=== PATIENT | female | born 1950 | race Caucasian/White ===

== ENCOUNTER 2018-01-09 09:15 | Outpatient (CLI) | payer BC | END 2018-01-09 09:16 | disposition home or self-care (01) | LOC: BICULT 09:15 | PROVIDERS: ATTEND Internal Medicine | DX: R10.9 Unspecified abdominal pain (principal) | CPT/HCPCS: 76705 ==

== ENCOUNTER 2018-01-22 08:01 | Outpatient (CLI) | payer BC ==
--- NOTE | 2018-01-22 11:07 | CT ---
CT ABDOMEN AND PELVIS WITH CONTRAST: Date: 01/22/18 COMPARISON: 08/21/13. HISTORY: Right upper quadrant abdominal pain for 2 months with constipation. TECHNIQUE: Multiple contiguous axial images were obtained in a CT of the abdomen and pelvis with contrast. PO co ntrast was administered. Coronal reformats performed. FINDINGS: The liver, gallbladder, kidneys, adrenal glands, spleen, and pancreas are unremarkable. No free air, free fluid, or stranding changes are seen in the abdomen or pelvis. The patient is status post hysterectomy. The large and small bowel are unremarkable. The appendix is not seen and may have been removed. No abdominal or pelvic lymphadenopathy seen. Atherosclerotic calc ifications are seen in the aorta. Degenerative changes and postsurgical changes are seen in the spine. The abdominal wall soft tissues and visualized inferior thorax are unremarkable. IMPRESSION: No evidence of acute intra-abdominal/pelvic abnormality. POS: [facility]
[2018-01-22] MEDS ORDERED: Iopamidol 370 76% 100 ML VIAL ONE (14:45)
== END 2018-01-22 08:02 | disposition home or self-care (01) ==
LOC: NM 08:01
PROVIDERS: ATTEND Internal Medicine
DX: R10.11 Right upper quadrant pain (principal)
CPT/HCPCS: 74177; 82565

== ENCOUNTER 2018-01-23 07:54 | Outpatient (CLI) | payer BC ==
--- NOTE | 2018-01-23 13:27 | NM ---
NUCLEAR MEDICINE SCAN WITH DRUG: HISTORY: Abdominal pain, unspecified. COMPARISON: 03/10/2016 TECHNIQUE: The patient was administered 5.3 millicuries of technetium 99m mebrofenin intravenously. The patient was administered 8 oz of Ensure orally, to evaluate the gallbladder ejection fraction. FINDINGS: Appropriate uptake of the radiotracer by the hepatic parenchyma. There is prompt excretion into the intrahepatic biliary system. Localization of the radiotracer in the gallbladder as early as 9 minute s. Passage of radiotracer from the common bile duct and the small bowel loops. Ejection fraction is 88%. IMPRESSION: 1. No scintigraphic evidence of acute cholecystitis. 2. Ejection fraction is 88%. POS: [facility]
== END 2018-01-23 07:55 | disposition home or self-care (01) ==
LOC: NM 07:54
DX: R10.9 Unspecified abdominal pain (principal)
CPT/HCPCS: 78227; A9537

== ENCOUNTER 2018-08-22 14:14 | Outpatient (CLI) | payer BC ==
--- NOTE | 2018-08-22 15:25 | RAD ---
PA AND LATERAL VIEWS OF THE CHEST: HISTORY: Dyspnea on exertion. FINDINGS: Comparison is made with the exam dated 10/20/2013. The heart size is normal. The lungs are expanded without focal areas of consolidation, pneumothorace s, or pleural effusions. There are degenerative changes in the spine. IMPRESSION: No radiographic evidence of acute cardiopulmonary process. POS: [facility]
== END 2018-08-22 14:15 | disposition home or self-care (01) ==
LOC: BICRAD 14:14
PROVIDERS: ATTEND Internal Medicine
DX: R06.09 Other forms of dyspnea (principal)
CPT/HCPCS: 36415; 71046; 80053; 82306; 82607; 82977; 83036; 83690; 83970; 84439; 84443; 85025; 85379

== ENCOUNTER 2018-08-29 12:49 | Outpatient (CLI) | payer BC | END 2018-08-29 12:50 | disposition home or self-care (01) | LOC: CP 12:49 | PROVIDERS: ATTEND Internal Medicine | DX: R06.09 Other forms of dyspnea (principal) | CPT/HCPCS: 94060; 94727; 94729 ==

== ENCOUNTER 2018-10-01 11:34 | Outpatient (CLI) | payer BC ==
--- NOTE | 2018-10-01 12:15 | RAD ---
THREE VIEWS RIGHT RIBS: History: Pain. Comparison: None. FINDINGS: No fracture. No cortical irregularity. No periosteal reaction. IMPRESSION: No evidence of a right rib fracture. POS: [facility]
--- NOTE | 2018-10-01 12:17 | RAD ---
THORACIC SPINE THREE VIEWS: History: Pain. Comparison: None. FINDINGS: There is mild to moderate loss of disc space height with osteophyte formation throughout the thoracic spine. There is mild rightward curvature of the upper thoracic spine. Mild leftward curvature of the distal thoracic spine. Based on the images provided, there is no significant loss of vertebral body height. No obvious malalignment. IMPRESSION: 1. Mild S-shaped curvature of the thoracic spine. 2. Multilevel degenerative disc disease with osteophyte formation. No evidence of fracture. POS: [facility]
== END 2018-10-01 11:35 | disposition home or self-care (01) ==
LOC: BICRAD 11:34
PROVIDERS: ATTEND Internal Medicine
DX: M54.9 Dorsalgia, unspecified (principal); R07.81 Pleurodynia; M43.8X4 Other specified deforming dorsopathies, thoracic region; M51.34 Other intervertebral disc degeneration, thoracic region; M25.78 Osteophyte, vertebrae
CPT/HCPCS: 72072

== ENCOUNTER 2018-10-18 08:01 | Outpatient (CLI) | payer BC ==
--- NOTE | 2018-10-18 10:41 | MRI ---
MRI THORACIC SPINE WITHOUT CONTRAST: HISTORY: M51.34, thoracic degenerative disk disease. COMPARISON: Thoracic spine radiograph from 10/01/2018. FINDINGS: Aortic contour is nonaneurysmal. No retroperitoneal adenopathy. The paraspinal musculature is normal. No hydronephrosis. No marrow infiltrative process. There is mild exaggerated thoracic kyphosis due to mild degenerative disk space disease in the mid thoracic spine, from T7 to T10. At T7-T8, there i s a small central posterior disk osteophyte complex without significant neural foraminal or spinal ca nal narrowing. At T8-T9, there is a central and right paracentral posterior disk osteophyte complex, causing mild displacement of the ventral CSF space, although the spinal canal is not significantly n arrowed. No neural foraminal narrowing. There is no neural foraminal narrowing throughout the thora cic spine. The visualized sternum is unremarkable. The signal of the cord is normal. IMPRESSION: Low grade spondylosis. No acute abnormality. No fracture. POS: [facility]
== END 2018-10-18 08:02 | disposition home or self-care (01) ==
LOC: TBSIIMAG 08:01
PROVIDERS: ATTEND Internal Medicine
DX: M51.34 Other intervertebral disc degeneration, thoracic region (principal); M47.814 Spondylosis without myelopathy or radiculopathy, thoracic region
CPT/HCPCS: 72146

== ENCOUNTER 2019-05-30 06:42 | Outpatient (CLI) | payer BC ==
--- NOTE | 2019-05-30 08:29 | ULT ---
HEPATIC SONOGRAM WITH DUPLEX EVALUATION. HISTORY: Abnormal liver function tests. Fatty liver. FINDINGS: Gallbladder is well distended. No stones visible. The common duct is 0.6 cm. Liver is diffusely ec hogenic without focal mass or intrahepatic biliary dilatation. No free fluid. The spleen measures u p to 9.4 cm. Good color and spectral Doppler flow within the hepatic and splenic arteries. Portal venous flow is towards he liver. Hepatic venous flow is towards the IVC. IMPRESSION: 1. Hepatosteatosis. 2. No evidence of gallstones or biliary obstruction. 3. No sonographic findings of portal venous hypertension. POS: [facility]
== END 2019-05-30 06:43 | disposition home or self-care (01) ==
LOC: BICULT 06:42
PROVIDERS: ATTEND Physician Assistant Medical
DX: K76.0 Fatty (change of) liver, not elsewhere classified (principal)
CPT/HCPCS: 76705

== ENCOUNTER 2019-06-19 11:01 | Outpatient (CLI) | payer BC ==
--- NOTE | 2019-06-30 15:22 | MMO ---
Bilateral MAMMO Bilat Screen [facility]. CLINICAL HISTORY: Patient is 68 years old and is seen for screening. The patient has the following family history of breast cancer: mother, at age 47. VIEWS: The views performed were: bilateral craniocaudal with tomosynthesis and bilateral mediolateral oblique with tomosynthesis. FILMS COMPARED: The present examination has been compared to prior imaging studies performed at [facility] on 02/22/2016, 04/11/2017 and 04/15/2018. MAMMOGRAM FINDINGS: There are scattered fibroglandular densities. There are benign appearing calcifications seen in both breasts. There are no suspicious masses, suspicious calcifications, or new areas of architectural distortion. IMPRESSION: THERE IS NO MAMMOGRAPHIC EVIDENCE OF MALIGNANCY. A ROUTINE FOLLOW-UP MAMMOGRAM IN 1 YEAR IS RECOMMENDED. THE RESULTS OF THIS EXAM WERE SENT TO THE PATIENT. ACR BI-RADS Category 2 - Benign finding MAMMOGRAPHY NOTE: 1. A negative mammogram report should not delay a biopsy if a dominant of clinically suspicious mass is present. 2. Approximately 10% to 15% of breast cancers are not detected by mammography. 3. Adenosis and dense breasts may obscure an underlying neoplasm. Reported by: RUPERT CABRAL MD Electonically Signed: [id number]
== END 2019-06-19 11:02 | disposition home or self-care (01) ==
LOC: BICMAMMO 11:01
PROVIDERS: ATTEND Internal Medicine
DX: Z12.31 Encounter for screening mammogram for malignant neoplasm of breast (principal); Z80.3 Family history of malignant neoplasm of breast
CPT/HCPCS: 77063; 77067

== ENCOUNTER 2019-07-25 10:50 | Outpatient (CLI) | payer BC ==
--- NOTE | 2019-07-25 12:19 | BD ---
DEXA BONE DENSITY STUDY: Date: 07/25/19 HISTORY: 69-year-old postmenopausal female for screening. FINDINGS: Left Femoral Neck: 0.714 T-Score: -1.2 Total Femur: 0.853 T-Score: -0.7 Right Femoral Neck: 0.667 T-Score: -1.7 Total Femur: 0.870 T-Score: -0.6 IMPRESSION: Osteopenia. This patient has a 10 year WHO fracture risk for a major osteoporotic fracture of 11% and for a hip fracture of 1.8%. POS: [facility]
== END 2019-07-25 10:51 | disposition home or self-care (01) ==
LOC: BICMAMMO 10:50
PROVIDERS: ATTEND Internal Medicine Endocrinology, Diabetes & Metabolism
DX: Z13.820 Encounter for screening for osteoporosis (principal); E21.2 Other hyperparathyroidism; M85.851 Other specified disorders of bone density and structure, right thigh; M85.852 Other specified disorders of bone density and structure, left thigh
CPT/HCPCS: 77080

== ENCOUNTER 2019-11-28 14:08 | Outpatient (CLI) | payer BC ==
--- NOTE | 2019-11-28 14:25 | RAD ---
XR Chest Pa Lat STANDARD History: Cough Comparison: Radiograph 2018 Findings: There is a new opacity within the lingula. Remainder the lungs are relatively clear. No pne umothorax. No effusion. No acute osseous abnormality. Impression: New lingular opacity concerning for infection. Follow-up after treatment recommended.
== END 2019-11-28 14:09 | disposition home or self-care (01) ==
LOC: BICRAD 14:08
PROVIDERS: ATTEND Chiropractor
DX: R05 Cough (principal); R91.8 Other nonspecific abnormal finding of lung field
CPT/HCPCS: 71046

== ENCOUNTER 2020-04-27 16:13 | Outpatient (CLI) | payer BC ==
--- NOTE | 2020-04-27 16:35 | RAD ---
Exam: Lumbar spine 4 views HISTORY: Lumbar radiculopathy. COMPARISON: none FINDINGS: 5 lumbar type vertebra. Bilateral transpedicular screws at L4 and L5. L4-L5 disc prosthesis In the lateral neutral weightbearing position, there is no significant loss of disc space height. Spondylolisthesis: L4-L5: Neutral 3.2 mm of anterolisthesis; flexion 3.9 mm of anterolisthesis; extension anterolisthesi s resolves L3-L4: Neutral 1.5 mm of anterolisthesis; flexion 5.1 mm of anterolisthesis; extension anterolisthesi s resolves Visualized sacrum and bony pelvis are intact. IMPRESSION: Lumbar fusion at L4-L5. Spondylolisthesis as detailed above.
== END 2020-04-27 16:14 | disposition home or self-care (01) ==
LOC: BICRAD 16:13
PROVIDERS: ATTEND Neurological Surgery
DX: M54.16 Radiculopathy, lumbar region (principal); M43.16 Spondylolisthesis, lumbar region; Z98.1 Arthrodesis status
CPT/HCPCS: 72110

== ENCOUNTER 2020-07-01 13:04 | Outpatient (CLI) | payer BC ==
--- NOTE | 2020-07-01 16:41 | MMO ---
Bilateral MAMMO Bilat Screen [facility]. CLINICAL HISTORY: Patient is 69 years old and is seen for screening. The patient has the following family history of breast cancer: mother, at age 47. VIEWS: The views performed were: bilateral craniocaudal with tomosynthesis and bilateral mediolateral oblique with tomosynthesis. FILMS COMPARED: The present examination has been compared to prior imaging studies performed at [facility] on 06/19/2019, and at [facility] on 02/22/2016, 04/11/2017 and 04/15/2018. This study has been interpreted with the assistance of computer-aided detection. MAMMOGRAM FINDINGS: There are scattered fibroglandular densities. Benign calcifications are noted bilaterally. There are no suspicious masses, suspicious calcifications, or new areas of architectural distortion. IMPRESSION: THERE IS NO MAMMOGRAPHIC EVIDENCE OF MALIGNANCY. A ROUTINE FOLLOW-UP MAMMOGRAM IN 1 YEAR IS RECOMMENDED. THE RESULTS OF THIS EXAM WERE SENT TO THE PATIENT. ACR BI-RADS Category 2 - Benign finding MAMMOGRAPHY NOTE: 1. A negative mammogram report should not delay a biopsy if a dominant of clinically suspicious mass is present. 2. Approximately 10% to 15% of breast cancers are not detected by mammography. 3. Adenosis and dense breasts may obscure an underlying neoplasm. Reported by: MILTON STERLING MD Electonically Signed: [id number]
== END 2020-07-01 13:05 | disposition home or self-care (01) ==
LOC: BICMAMMO 13:04
PROVIDERS: ATTEND Internal Medicine
DX: Z12.31 Encounter for screening mammogram for malignant neoplasm of breast (principal); Z80.3 Family history of malignant neoplasm of breast
CPT/HCPCS: 77063; 77067

== ENCOUNTER 2020-11-11 15:55 | Outpatient (CLI) | payer BC ==
--- NOTE | 2020-11-11 16:47 | MRI ---
MR CERVICAL SPINE WITHOUT CONTRAST INDICATION: 70-year-old female with cervical spondylosis TECHNIQUE: Multiplanar multisequence MR images were obtained of the cervical spine without contrast. COMPARISON: December 30, 2016 MR cervical spine from prior radiology associates FINDINGS: Posterior fossa: Within normal limits. Bone marrow signal intensity: Normal Spinal alignment: Normal. Craniocervical junction: Normal appearing. Prevertebral and perivertebral soft tissues: Visualized soft tissues appear within normal limits. Vertebral levels: C2-C3: There is moderate to severe left and moderate right facet joint degenerative change. This is p rogressed from the prior exam. There is no appreciable central canal or neural foraminal narrowing. C3-4: There is moderate to severe left and mild right facet joint degenerative change. There is mild uncovertebral hypertrophy. This is relatively stable to the prior exam. No appreciable central canal or neural foraminal narrowing is evident. C4-5: There is a broad-based disc osteophyte complex with uncovertebral hypertrophy and facet joint degenerative change inducing mild central canal narrowing with mild ventral effacement of the spinal cord. This appears slightly more pronounced on the prior exam. There is stable moderate to sev ere right neural foraminal narrowing due to uncovertebral hypertrophy and facet degenerative change. C5-C6: There is a broad-based bulge with facet joint degenerative change but no appreciable central c anal or neural foraminal narrowing. C6-C7: There is a disc osteophyte complex with facet hypertrophy inducing mild central canal narrowin g which is stable. There is a stable moderate right neural foraminal narrowing. There is mild left neural foraminal narrowing is stable. At C7-T1, there is a mild broad-based bulge but no appreciable central canal or neural foraminal narr owing. C7-T1: No appreciable central canal or neuroforaminal narrowing. IMPRESSION: 1. Moderate multilevel cervical spondylosis. 2. Slight worsening central canal narrowing at C4-5 due to slightly more pronounced disc osteophyte c omplex. 3. Multilevel neural foraminal narrowing appears stable to the prior exam.
== END 2020-11-11 15:56 | disposition home or self-care (01) ==
LOC: TBSIIMAG 15:55
PROVIDERS: ATTEND Physician Assistant
DX: M47.812 Spondylosis without myelopathy or radiculopathy, cervical region (principal); M48.02 Spinal stenosis, cervical region; M25.78 Osteophyte, vertebrae
CPT/HCPCS: 72141

== ENCOUNTER 2021-09-12 14:37 | Outpatient (CLI) | payer BC | END 2021-09-12 14:38 | disposition home or self-care (01) | LOC: BICMAMMO 14:37 | PROVIDERS: ATTEND Internal Medicine | DX: N63.20 Unspecified lump in the left breast, unspecified quadrant (principal) | CPT/HCPCS: 77066; G0279 ==

== ENCOUNTER 2022-07-03 14:27 | Outpatient (CLI) | payer BC | END 2022-07-03 14:28 | disposition home or self-care (01) | LOC: BICMAMMO 14:27 | PROVIDERS: ATTEND Internal Medicine Endocrinology, Diabetes & Metabolism | DX: M85.851 Other specified disorders of bone density and structure, right thigh (principal); M85.852 Other specified disorders of bone density and structure, left thigh; E21.2 Other hyperparathyroidism | CPT/HCPCS: 77080 ==

== ENCOUNTER 2022-07-07 15:38 | Outpatient (CLI) | payer BC | END 2022-07-07 15:39 | disposition home or self-care (01) | LOC: BICRAD 15:38 | PROVIDERS: ATTEND Internal Medicine | DX: M25.551 Pain in right hip (principal); M25.552 Pain in left hip; M16.0 Bilateral primary osteoarthritis of hip ==

== ENCOUNTER 2022-08-23 10:26 | Outpatient (CLI) | payer BC | END 2022-08-23 10:27 | disposition home or self-care (01) | LOC: BICRAD 10:26 | PROVIDERS: ATTEND Internal Medicine | DX: M25.561 Pain in right knee (principal); S82.001A Unspecified fracture of right patella, initial encounter for closed fracture; Z96.651 Presence of right artificial knee joint ==

== ENCOUNTER 2022-11-24 09:45 | Outpatient (CLI) | payer BC | END 2022-11-24 09:46 | disposition home or self-care (01) | LOC: BICMAMMO 09:45 | PROVIDERS: ATTEND Internal Medicine | DX: Z12.31 Encounter for screening mammogram for malignant neoplasm of breast (principal); Z80.3 Family history of malignant neoplasm of breast | CPT/HCPCS: 77063; 77067 ==

== ENCOUNTER 2023-12-11 13:58 | Outpatient (CLI) | payer BC | END 2023-12-11 13:59 | disposition home or self-care (01) | LOC: BICMAMMO 13:58 | PROVIDERS: ATTEND Internal Medicine | DX: Z12.31 Encounter for screening mammogram for malignant neoplasm of breast (principal); Z13.820 Encounter for screening for osteoporosis; E21.2 Other hyperparathyroidism; M85.851 Other specified disorders of bone density and structure, right thigh; M85.852 Other specified disorders of bone density and structure, left thigh; Z80.3 Family history of malignant neoplasm of breast | CPT/HCPCS: 77063; 77067; 77080 ==

== ENCOUNTER 2023-12-17 12:39 | Outpatient (CLI) | payer BC | END 2023-12-17 12:40 | disposition home or self-care (01) | LOC: BICCT 12:39 | PROVIDERS: ATTEND Neurological Surgery | DX: M47.26 Other spondylosis with radiculopathy, lumbar region (principal); M43.16 Spondylolisthesis, lumbar region; M46.06 Spinal enthesopathy, lumbar region; M48.8X6 Other specified spondylopathies, lumbar region; Z98.1 Arthrodesis status | CPT/HCPCS: 72120; 72131 ==

== ENCOUNTER 2024-03-11 10:54 | Outpatient (CLI) | payer BC ==
[2024-03-11] MEDS ORDERED: Iopamidol 370 76% 100 ML VIAL ONE (11:20)
[2024-03-11] MEDS ORDERED: GASTROGRAFIN 30 ML BOT ONE (11:20)
== END 2024-03-11 10:55 | disposition home or self-care (01) ==
LOC: CT 10:54
PROVIDERS: ATTEND Internal Medicine
DX: R10.9 Unspecified abdominal pain (principal); K76.0 Fatty (change of) liver, not elsewhere classified; K57.30 Diverticulosis of large intestine without perforation or abscess without bleeding; R19.5 Other fecal abnormalities; Z98.890 Other specified postprocedural states
CPT/HCPCS: 74177; Q9963; Q9967

== ENCOUNTER 2024-10-31 09:36 | Outpatient (CLI) | payer BC | END 2024-10-31 09:37 | disposition home or self-care (01) | LOC: BICRAD 09:36 | PROVIDERS: ATTEND Internal Medicine | DX: R07.81 Pleurodynia (principal) ==

== ENCOUNTER 2024-11-10 13:32 | Outpatient (CLI) | payer BC ==
[~2024-11-10 13:32] MED LIST: Iopamidol 370 76% 100 ML VIAL ONE
== END 2024-11-10 13:33 | disposition home or self-care (01) ==
LOC: CT 13:32
PROVIDERS: ATTEND Internal Medicine
DX: R10.10 Upper abdominal pain, unspecified (principal); N28.89 Other specified disorders of kidney and ureter
CPT/HCPCS: 74177; Q9967

== ENCOUNTER 2024-11-12 08:20 | Outpatient (CLI) | payer BC | END 2024-11-12 08:21 | disposition home or self-care (01) | LOC: BICULT 08:20 | PROVIDERS: ATTEND Internal Medicine | DX: R10.11 Right upper quadrant pain (principal) | CPT/HCPCS: 76705 ==

== ENCOUNTER 2025-05-19 14:36 | Outpatient (CLI) | payer MEDICARE, BC | END 2025-05-19 14:37 | disposition home or self-care (01) | LOC: BICMAMMO 14:36 | PROVIDERS: ATTEND Internal Medicine | DX: Z12.31 Encounter for screening mammogram for malignant neoplasm of breast (principal); Z80.3 Family history of malignant neoplasm of breast | CPT/HCPCS: 77063; 77067 ==